=== PATIENT | female | born 1960 | race Caucasian/White ===

== ENCOUNTER 2019-10-18 13:55 | Emergency (ER) | payer MEDICARE, OTHER ==
--- NOTE | 2019-10-18 14:19 | EDM.PDOC ---
ED HPI GENERAL MEDICAL PROBLEM - General Chief Complaint: Respiratory Problem Stated Complaint: SOB Time Seen by Provider: 10/18/19 14:00 Source of Information: Reports: Patient, Old Records History Limitations: Reports: No Limitations - History of Present Illness INITIAL COMMENTS - FREE TEXT/NARRATIVE: Patient presents to ER with ongoing shortness of breath. She has been seeing Jeanine Hylton over the last few weeks for same. Has had a chest xray, 2 EKGS and an echocardiogram and have not been able to pinpoint why she is feeling this way. Labs have been normal. Initially thought she may have CHF and had a trial of Lasix but patient did not see a change. Saw psychiatry and they changed her meds around due to anxiety. Saw Jeanine last on and had repeat labs at that time. She notes on Saturday, started coughing more and now has been coughing up yellow sputum. She was found to have atrial fib and due to a CHADS score of 2, Eliquis was discussed. She is hesitant about blood thinners due to the troubles her mother had with Coumadin. Onset: Gradual Duration: Week(s): Location: Reports: Chest Quality: Reports: Ache Associated Symptoms: Reports: Cough, cough w sputum, Shortness of Breath, Weakness. 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 Treatments Chest Pain Score (Numeric/FACES): 2 - Related Data Allergies Allergy/AdvReac Type Severity Reaction Status Date / Time codeine Allergy Other Verified 10/18/19 14:16 mold Allergy Other Verified 10/18/19 14:16 Home Meds: Home Meds Albuterol Sulfate [Albuterol Sulfate Hfa] 2 puff INH Q4H PRN 10/18/19 [History] Aspirin 325 mg PO DAILY 10/18/19 [History] Cefuroxime Axetil [Ceftin] 250 mg PO BID #20 tablet 10/18/19 [Rx] Cholecalciferol (Vitamin D3) [Vitamin D3] 2,000 unit PO DAILY 10/18/19 [History] Fluticasone Furoate [Arnuity Ellipta] 1 puff IH DAILY PRN 10/18/19 [History] Gabapentin [Neurontin] 200 mg PO BEDTIME 10/18/19 [History] Losartan [Cozaar] 50 mg PO DAILY 10/18/19 [History] Lovastatin 20 mg PO DAILY 10/18/19 [History] Meloxicam 15 mg PO DAILY 10/18/19 [History] Metoprolol Tartrate 25 mg PO BID 10/18/19 [History] Mirtazapine [Remeron] 15 mg PO BEDTIME 10/18/19 [History] Multivitamin [Daily Multiple Vitamin] 1 tab PO DAILY 10/18/19 [History] Omeprazole 20 mg PO Q48H 10/18/19 [History] PARoxetine [Paxil] 20 mg PO DAILY 10/18/19 [History] Sodium Chloride [Saline Mist] 2 spray NS QID PRN 10/18/19 [History] hydroCHLOROthiazide [Hydrochlorothiazide] 12.5 mg PO DAILY 10/18/19 [History] traZODone HCl [Trazodone HCl] 100 mg PO BEDTIME 10/18/19 [History] Past Medical History HEENT History: Reports: Allergic Rhinitis Cardiovascular History: Reports: Afib, High Cholesterol, Hypertension Respiratory History: Reports: Other (See Below) Other Respiratory History: reactive airway disease Gastrointestinal History: Reports: GERD Genitourinary History: Reports: Chronic Renal Insuffiency Psychiatric History: Reports: Anxiety, Depression, PTSD Endocrine/Metabolic History: Reports: Other (See Below) Other Endocrine/Metabolic History: pre-diabetes Social & Family History - Tobacco Use Smoking Status *Q: Never Smoker ED ROS GENERAL - Review of Systems Review Of Systems: See Below Constitutional: Reports: Chills, Malaise, Weakness, Fatigue. Denies: Fever HEENT: Reports: Rhinitis. Denies: Ear Pain, Sinus Problem, Throat Pain Respiratory: Reports: Shortness of Breath, Cough, Sputum. Denies: Wheezing Cardiovascular: Denies: Chest Pain, Edema, Lightheadedness Endocrine: Reports: Fatigue GI/Abdominal: Denies: Abdominal Pain, Nausea, Vomiting : Reports: No Symptoms Musculoskeletal: Reports: Joint Pain Skin: Reports: No Symptoms Neurological: Reports: Weakness ED EXAM, GENERAL - Physical Exam Exam: See Below Exam Limited By: No Limitations General Appearance: Alert, WD/WN, No Apparent Distress Ears: Normal External Exam, Normal TMs Nose: Normal Inspection, Normal Mucosa, Other (excoriation noted) Throat/Mouth: Normal Inspection, Normal Oropharynx Head: Normocephalic Neck: Normal Inspection, Supple, Non-Tender Respiratory/Chest: No Respiratory Distress, Lungs Clear, Normal Breath Sounds Cardiovascular: Regular Rate, Rhythm GI/Abdominal: Normal Bowel Sounds, Soft, Non-Tender Extremities: Normal Inspection, Pedal Edema Neurological: Alert, Oriented Skin Exam: Warm, Dry Course - Vital Signs Last Recorded V/S: Last Vital Signs Temp 96.5 F 10/18/19 14:13 Pulse 93 10/18/19 14:13 Resp 32 H 10/18/19 14:13 BP 148/73 H 10/18/19 14:13 Pulse Ox 89 L 10/18/19 14:13 - Orders/Labs/Meds Labs: Laboratory Tests 10/18/19 10/18/19 10/18/19 Range/Units 14:25 14:25 14:25 WBC 7.5 (4.0-10.0) x10^3/uL RBC 3.87 L (4.00-5.50) x10^6/uL Hgb 11.9 L (12.0-16.0) g/dL Hct 35.4 (33.0-47.0) % MCV 91.5 (78.0-93.0) fL MCH 30.7 (26.0-32.0) pg MCHC 33.6 (32.0-36.0) g/dL RDW Coeff of Shamir 11.6 (10.0-15.0) % Plt Count 259 (130-400) x10^3/uL Neut % (Auto) 49.7 L (50.0-80.0) % Lymph % (Auto) 35.0 (25.0-50.0) % [place] % (Auto) 9.4 (2.0-11.0) % Eos % (Auto) 5.4 H (0.0-4.0) % Baso % (Auto) 0.5 (0.2-1.2) % D-Dimer, Quantitative 0.93 H (<=0.58) mg/LFEU Sodium 142 (136-145) mmol/L Potassium 4.3 (3.5-5.1) mmol/L Chloride 105 (98-107) mmol/L Carbon Dioxide 27 (21-32) mmol/L Anion Gap 14.3 (10-20) mmol/L BUN 23 H (7-18) mg/dL Creatinine 1.3 H (0.55-1.02) mg/dL Est Cr Clr Drug Dosing TNP Estimated GFR (MDRD) 42 Glucose 89 (74-106) mg/dL Calcium 8.0 L (8.5-10.1) mg/dL C-Reactive Protein 0.7 (<=0.9) mg/dL Meds: Medications Discontinued Medications Generic Name Dose Route Start Last Admin Trade Name Freq PRN Reason Stop Dose Admin Iopamidol 100 ml 10/18/19 15:14 10/18/19 15:22 Isovue-300 (61%) IVPUSH 10/18/19 15:15 100 ml ONETIME ONE Administration - Re-Assessments/Exams Free Text/Narrative Re-Assessment/Exam: 10/18/19 1500 Labs reviewed. WBC is stable. D-dimer is elevated. Will proceed with CTA of chest. 1600-REsults reviewed, consistent with bronchitis as has noted peribronchial thickening. Does have a area of sclerosis in the T2 vertebral body. Will need follow up of this, possible MRI, with primary care provider. Free Text/Narrative Re-Assessment/Exam: 10/18/19 16:[address] results with patient. Will need follow up of this with primary care provider Jeanine Hylton. Departure - Departure Time of Disposition: 16:15 Disposition: Home, Self-Care 01 Condition: Fair Clinical Impression: Acute bronchiolitis - Discharge Information *PRESCRIPTION DRUG MONITORING PROGRAM REVIEWED*: No *COPY OF PRESCRIPTION DRUG MONITORING REPORT IN PATIENT SARA: No Instructions: Acute Bronchitis, Adult, [id number] Forms: ED Department Discharge Additional Instructions: 1. Push fluids 2. Rest 3. Return with sputum sample if able 4. Start Ceftin 250 mg twice a day for the next 10 days 5. Follow up with Jeanine Hylton. Discuss CT and determine if further scan/MRI need of thoracic spine. Sepsis Event Note - Focused Exam Vital Signs: Vital Signs Temp Pulse Resp BP Pulse Ox 10/18/19 14:13 96.5 F 93 32 H 148/73 H 89 L Date Exam was Performed: 10/18/19 Time Exam was Performed: 16:04
[2019-10-18 14:43] LABS: CHLORIDE,CL 105 mmol/L (98-107); SODIUM,NA 142 mmol/L (136-145)
[2019-10-18 14:45] LABS: ANION GAP 14.3 mmol/L (10-20)
[2019-10-18] MEDS ORDERED: Iopamidol 612 MG/ML 100 ML Bottle IVPUSH ONE (15:14)
--- NOTE | 2019-10-18 15:57 | CT ---
[id number] CT/CTA Chest EXAM: CTA Chest CLINICAL DATA: ELEVATED D DIMER,SHORTNESS OF BREATH. COMPARISON: None. FINDINGS: LUNGS: Mild bilateral central and symmetric peribronchial thickening. Mosaic parenchymal attenuation pattern in the lungs extending into the apices is nonspecific. In the setting of possible bronchitis/bronchiolitis, sequela of small airways disease is most likely. Some of this opacity in the dependent lower lobes is possibly sequela of partial atelectasis. No evidence of pneumonia. No pneumothorax or effusion. HEART AND GREAT VESSELS: Negative for pulmonary embolus. Thoracic aorta is normal in caliber. No evidence of a dissection. Heart is normal in size and contour. No pericardial effusion. MEDIASTINUM AND LYMPHATICS: No mediastinal or hilar lymphadenopathy. UPPER ABDOMINAL ORGANS: Visualized portion of the liver demonstrates changes of diffuse steatosis. Otherwise unremarkable. BONES: 9 x 12 mm focal area of sclerosis well-defined margins in the T2 vertebral body right of midline (series 4 image 19 and series 6 image 59). A sclerotic lesion is possible. No other suspicious osseous findings on this examination. IMPRESSION: Negative for pulmonary embolus. Bilateral central and symmetric peribronchial thickening with a mild mosaic parenchymal attenuation pattern. Findings are nonspecific but can be seen with underlying changes of bronchitis/bronchiolitis. Focal 9 x 12 mm area of sclerosis with well-defined margins in the T2 vertebral body right of midline. Finding is nonspecific in etiology. However, in a patient of this age, metastatic disease is possible. Plasmacytoma/multiple myeloma is less likely, as this usually presents as a lytic lesion. Correlation with any prior imaging would be of benefit to assess for prior presence or stability. If no prior imaging is available additional evaluation is recommended, including MRI of the entire spine with and without contrast to evaluate for other lesions as well as a nuclear medicine bone scan. Won Vasquez MD 10/18/19 5209 Thank you for allowing us to participate in the care of your patient.
[2019-10-18] MEDS ORDERED: methylPREDNISolone Acetate 40 MG/ML SDV IM ONE (16:07)
[2019-10-18] MEDS ORDERED: cefTRIAXone 1 GM Vial IVPUSH SCH (16:15)
== END 2019-10-18 16:48 | disposition home or self-care (01) ==
LOC: VM.ED 13:55
DX: J21.9 Acute bronchiolitis, unspecified (principal); I12.9 Hypertensive chronic kidney disease with stage 1 through stage 4 chronic kidney disease, or unspecified chronic kidney disease; N18.9 Chronic kidney disease, unspecified; I48.91 Unspecified atrial fibrillation; E78.00 Pure hypercholesterolemia, unspecified; K21.9 Gastro-esophageal reflux disease without esophagitis; F41.9 Anxiety disorder, unspecified; F32.9 Major depressive disorder, single episode, unspecified; Z88.8 Allergy status to other drugs, medicaments and biological substances; Z91.048 Other nonmedicinal substance allergy status; Z79.82 Long term (current) use of aspirin; Z79.899 Other long term (current) drug therapy
CPT/HCPCS: 36415; 71275; 80048; 85025; 85379; 86140; 96372; 96374; 99284; 99285; J0696; J1030; Q9967

== ENCOUNTER 2019-12-26 16:46 | Emergency (ER) | payer MEDICARE, OTHER ==
[2019-12-26] MEDS ORDERED: Nitroglycerin 0.4 MG Tab.SL SL ONE (17:10)
--- NOTE | 2019-12-26 17:11 | EDM.PDOC ---
ED HPI GENERAL MEDICAL PROBLEM - General Chief Complaint: Respiratory Problem Stated Complaint: SOB Time Seen by Provider: 12/26/19 17:00 Source of Information: Reports: Patient History Limitations: Reports: No Limitations - History of Present Illness INITIAL COMMENTS - FREE TEXT/NARRATIVE: She comes into the emergency department with complaint of right sided chest discomfort, dry cough, and SOB with activity and cough. Patient states that woke up in the middle the night she states that the chest discomfort was a stabbing chest sharp sensation on the right side of her chest with a severe cough. She states that it has hurt more when she takes a deep breath or coughing. 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 However after she woke up this morning (8am) she states throughout the day the discomfort and SOB has continued. She denies taking any of her PRN inhalers or nebs as prescribed by her epidemiology investigator. She states that it is difficult to take a breath due to the discomfort at times. She denies it radiating to her neck or shoulder or getting worse. She also denies any nausea or vomiting, this of breath, blurred vision, dizziness, lightheadedness, or peripheral edema. States she has been relatively healthy prior to this other than her ongoing chronic respiratory issues. She does have a history of seasonal allergies and does follow-up regularly with her epidemiology investigator for chronic SOB. She did see her epidemiology investigator this past week and they changed her medications to help with her increased allergies this season. Patient did have a fever and chills within the last week but feels that has gotten better ans she has not checked her actual temp. 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 Onset: Sudden Quality: Reports: Stabbing Severity: Mild Improves with: Reports: Rest Worsens with: Reports: Movement Associated Symptoms: Reports: No Other Symptoms Chest Pain Score (Numeric/FACES): 6 - Related Data Allergies Allergy/AdvReac Type Severity Reaction Status Date / Time bupropion [From Wellbutrin] Allergy Hallucinati Verified 12/26/19 17:24 ons codeine Allergy Other Verified 12/26/19 17:24 mold Allergy Other Verified 12/26/19 17:24 Home Meds: Home Meds Albuterol Sulfate [Albuterol Sulfate Hfa] 2 puff INH Q4H PRN 10/18/19 [History] Aspirin 325 mg PO DAILY 10/18/19 [History] Cefuroxime Axetil [Ceftin] 250 mg PO BID #20 tablet 10/18/19 [Rx] Cholecalciferol (Vitamin D3) [Vitamin D3] 2,000 unit PO DAILY 10/18/19 [History] Fluticasone Furoate [Arnuity Ellipta] 1 puff IH DAILY PRN 10/18/19 [History] Gabapentin [Neurontin] 200 mg PO BEDTIME 10/18/19 [History] Losartan [Cozaar] 50 mg PO DAILY 10/18/19 [History] Lovastatin 20 mg PO DAILY 10/18/19 [History] Meloxicam 15 mg PO DAILY 10/18/19 [History] Metoprolol Tartrate 25 mg PO BID 10/18/19 [History] Mirtazapine [Remeron] 15 mg PO BEDTIME 10/18/19 [History] Multivitamin [Daily Multiple Vitamin] 1 tab PO DAILY 10/18/19 [History] Omeprazole 20 mg PO Q48H 10/18/19 [History] PARoxetine [Paxil] 30 mg PO DAILY 10/18/19 [History] Sodium Chloride [Saline Mist] 2 spray NS QID PRN 10/18/19 [History] hydroCHLOROthiazide [Hydrochlorothiazide] 12.5 mg PO DAILY 10/18/19 [History] traZODone HCl [Trazodone HCl] 100 mg PO BEDTIME 10/18/19 [History] Azelastine HCl 1 spray .ROUTE Q12HR 12/26/19 [History] Budesonide [Pulmicort] 0.5 mg IH BID 12/26/19 [History] LORazepam [Ativan] 0.5 mg PO ASDIRECTED PRN 12/26/19 [History] Levocetirizine Dihydrochloride [Xyzal] 5 mg PO DAILY 12/26/19 [History] Pseudoephedrine HCl [Sudafed] 30 mg PO Q4HR PRN 12/26/19 [History] Sodium Chloride 5% [Tania 128 5% Ophth Soln] 1 drop EYEBOTH BID 12/26/19 [History ] Umeclidinium Brm/Vilanterol Tr [Anoro Ellipta 62.5-25 MCG] 62.5 mcg IH DAILY 01/10 [History] Vitamin E 1,000 units PO DAILY 12/26/19 [History] diphenhydrAMINE [Benadryl] 25 mg PO BEDTIME PRN 12/26/19 [History] guaiFENesin [Mucinex] 600 mg PO BID 12/26/19 [History] Past Medical History HEENT History: Reports: Allergic Rhinitis Cardiovascular History: Reports: Afib, High Cholesterol, Hypertension Respiratory History: Reports: Other (See Below) Other Respiratory History: reactive airway disease Gastrointestinal History: Reports: GERD Other Gastrointestinal History: Umbilical hernia Genitourinary History: Reports: Chronic Renal Insuffiency Musculoskeletal History: Reports: Neck Pain, Chronic Psychiatric History: Reports: Anxiety, Depression, PTSD Endocrine/Metabolic History: Reports: Other (See Below) Other Endocrine/Metabolic History: pre-diabetes - Past Surgical History Female Surgical History: Reports: Section Musculoskeletal Surgical History: Reports: Arthroscopic Knee ED ROS GENERAL - Review of Systems Review Of Systems: See Below Constitutional: Reports: Night Sweats, Decreased Appetite Respiratory: Reports: Pleuritic Chest Pain, Cough, Sputum Endocrine: Reports: Fatigue GI/Abdominal: Reports: No Symptoms : Reports: No Symptoms Musculoskeletal: Reports: No Symptoms Skin: Reports: No Symptoms Neurological: Reports: No Symptoms Psychiatric: Reports: No Symptoms Hematologic/Lymphatic: Reports: No Symptoms Immunologic: Reports: No Symptoms ED EXAM, GENERAL - Physical Exam Exam: See Below Exam Limited By: No Limitations General Appearance: Alert, WD/WN, No Apparent Distress Nose: Clear Rhinorrhea Throat/Mouth: Normal Inspection, Normal Lips, Normal Voice Head: Atraumatic, Normocephalic Neck: Normal Inspection, Supple, Non-Tender, Full Range of Motion Respiratory/Chest: No Respiratory Distress, No Accessory Muscle Use, Decreased Breath Sounds Cardiovascular: Normal Peripheral Pulses, Regular Rate, Rhythm, No Edema GI/Abdominal: Normal Bowel Sounds, Soft, Non-Tender, No Distention Back Exam: Normal Inspection, Full Range of Motion Extremities: Normal Inspection, Normal Range of Motion, Non-Tender, No Pedal Edema, Normal Capillary Refill Neurological: Alert, Oriented, Normal Cognition, Normal Gait Psychiatric: Normal Affect, Normal Mood Skin Exam: Warm, Dry, Intact, Normal Color Course - Vital Signs Last Recorded V/S: Last Vital Signs Temp 36.1 C 12/26/19 17:04 Pulse 97 12/26/19 18:02 Resp 19 12/26/19 18:02 BP 97/76 12/26/19 18:02 Pulse Ox 94 L 12/26/19 18:02 - Orders/Labs/Meds Orders: Active Orders 24 hr Category Date Time Status EKG Documentation Completion [RC] STAT Care 12/26/19 17:02 Active RT Aerosol Therapy [RC] ASDIRECTED Care 12/26/19 18:16 Active Labs: Laboratory Tests 12/26/19 12/26/19 Range/Units 17:13 17:13 WBC 8.1 (4.0-10.0) x10^3/uL RBC 4.40 (4.00-5.50) x10^6/uL Hgb 13.6 D (12.0-16.0) g/dL Hct 40.7 (33.0-47.0) % MCV 92.5 (78.0-93.0) fL MCH 30.9 (26.0-32.0) pg MCHC 33.4 (32.0-36.0) g/dL RDW Coeff of Shamir 12.2 (10.0-15.0) % Plt Count 271 (130-400) x10^3/uL Neut % (Auto) 46.9 L (50.0-80.0) % Lymph % (Auto) 35.0 (25.0-50.0) % [place] % (Auto) 12.9 H (2.0-11.0) % Eos % (Auto) 4.2 H (0.0-4.0) % Baso % (Auto) 1.0 (0.2-1.2) % Sodium 142 (136-145) mmol/L Potassium 3.8 (3.5-5.1) mmol/L Chloride 105 (98-107) mmol/L Carbon Dioxide 28 (21-32) mmol/L Anion Gap 12.8 (10-20) mmol/L BUN 17 (7-18) mg/dL Creatinine 1.0 (0.55-1.02) mg/dL Est Cr Clr Drug Dosing 53.16 mL/min Estimated GFR (MDRD) 56 Glucose 122 H (74-106) mg/dL Calcium 9.1 (8.5-10.1) mg/dL Corrected Calcium 9.66 (8.5-10.1) mg/dL Total Bilirubin 0.3 (0.2-1.0) mg/dL AST 30 (15-37) U/L ALT 39 (14-59) U/L Alkaline Phosphatase 61 (46-116) U/L Creatine Kinase 144 (26-192) U/L Troponin I < 0.017 (<=0.056) ng/mL NT-Pro-B Natriuret Pep 97 (<=125) pg/mL Total Protein 7.7 (6.4-8.2) g/dL Albumin 3.3 L (3.4-5.0) g/dL Globulin 4.4 Albumin/Globulin Ratio 0.75 Meds: Medications Discontinued Medications Generic Name Dose Route Start Last Admin Trade Name Freq PRN Reason Stop Dose Admin Albuterol/Ipratropium 3 ml 12/26/19 18:16 Duoneb 3.0-0.5 Mg/3 Ml NEB 12/26/19 18:17 ONETIME ONE Nitroglycerin 0.4 mg 12/26/19 17:10 12/26/19 17:18 Nitrostat SL 12/26/19 17:11 0.4 mg ONETIME ONE Administration Departure - Departure Time of Disposition: 19:00 Disposition: Home, Self-Care 01 Condition: Good Clinical Impression: Respiratory disorder, Pleuritic chest pain - Discharge Information *PRESCRIPTION DRUG MONITORING PROGRAM REVIEWED*: Not Applicable *COPY OF PRESCRIPTION DRUG MONITORING REPORT IN PATIENT SARA: Not Applicable Instructions: Costochondritis, [id number], Albuterol inhalation solution Referrals: Jeanine Hylton PA-C [Primary Care Provider] - Forms: ED Department Discharge Additional Instructions: 1. rest 2. increase your water intake 3. Continue all at home medications 4. Activity and diet as tolerated 5. Can take over the counter Tylenol or ibuprophen for any pain or discomfort 6. Albuterol inhalation you received from her epidemiology investigator every 4 hours as needed for shortness of breath 7. Follow up with PCP if symptoms continue, return, or progress 8. Call with any questions or concerns Sepsis Event Note - Focused Exam Vital Signs: Vital Signs Temp Pulse Resp BP BP Pulse Ox Pulse Ox 12/26/19 18:02 97 19 97/76 94 L 12/26/19 17:50 100 89 L 94 L 12/26/19 17:26 96 20 101/66 92 L 12/26/19 17:18 120/84 12/26/19 17:04 36.1 C 102 H 22 H 131/69 92 L Date Exam was Performed: 12/26/19 Time Exam was Performed: 18:26 - My Orders Last 24 Hours: My Active Orders 12/26/19 17:02 EKG Documentation Completion [RC] STAT 12/26/19 18:16 RT Aerosol Therapy [RC] ASDIRECTED - Assessment/Plan Last 24 Hours: My Active Orders 12/26/19 17:02 EKG Documentation Completion [RC] STAT 12/26/19 18:16 RT Aerosol Therapy [RC] ASDIRECTED Assessment:: 1. SOB 2. Pleuritic chest pain Plan: 1. Labs completed in the ER. Results reviewed with the patient 2. IV initiated in the emergency department 3. IV fluids provided 4. Chest xray completed in ER. Results reviewed with the patient 5. Nitro SL was given to the patient. no relief noted 6. EKG was completed in ER. Results reviewed with the patient 7. Duoneb completed in the ER. 8. Patient just received albuterol nebs when she saw the epidemiology investigator this week but has not used them yet. Patient was instructed to use them as needed for any SOB if it arises. Patient is encouraged to use nebs every 4 hours as needed. She was also instructed to turn up her dial by 1 turn on her steroid inhaler but has not completed that activity. Patient was encouraged to follow the recommended instructions per her epidemiology investigator since symptoms continue to rise and flare. 9. Patient and nursing staff was updated regarding the plan of care 10. Education provided the patient regarding activity, diet, rest, over-the- counter medication modalities, and follow-up care was provided 11. Patient and family are agreeable to the above plan of care 12. All questions and concerns were addressed with the patient and family prior to discharge
[2019-12-26 17:53] LABS: CHLORIDE,CL 105 mmol/L (98-107); SODIUM,NA 142 mmol/L (136-145)
[2019-12-26 17:54] LABS: ANION GAP 12.8 mmol/L (10-20)
--- NOTE | 2019-12-26 18:10 | CR ---
[id number] RAD/RAD Chest PA or AP 1V EXAM: RAD Chest PA or AP 1V INDICATION: CHEST PAIN. COMPARISON: CT October 18, 2019 DISCUSSION: Borderline cardiomegaly. No infiltrate, effusion, pneumothorax, or edema. IMPRESSION: No acute findings. Won Vasquez MD 12/26/19 0119 Thank you for allowing us to participate in the care of your patient.
[2019-12-26] MEDS ORDERED: Albuterol/Ipratropium 3.0-0.5 MG/3 ML Neb Soln NEB ONE (18:16)
== END 2019-12-26 19:19 | disposition home or self-care (01) ==
LOC: VM.ED 16:46
DX: R07.81 Pleurodynia (principal); R06.02 Shortness of breath; I48.91 Unspecified atrial fibrillation; I12.9 Hypertensive chronic kidney disease with stage 1 through stage 4 chronic kidney disease, or unspecified chronic kidney disease; N18.9 Chronic kidney disease, unspecified; K21.9 Gastro-esophageal reflux disease without esophagitis
CPT/HCPCS: 71045; 80053; 82550; 83880; 84484; 85025; 93005; 94640; 99285; A9270; 99284-GF; J7620-GY

== ENCOUNTER 2020-04-12 13:05 | Emergency (ER) | payer MEDICARE, OTHER ==
--- NOTE | 2020-04-12 15:00 | EDM.PDOC ---
ED HPI GENERAL MEDICAL PROBLEM - General Chief Complaint: Lower Extremity Injury/Pain Stated Complaint: FALL Time Seen by Provider: 04/12/20 13:10 Source of Information: Reports: Patient History Limitations: Reports: No Limitations - History of Present Illness INITIAL COMMENTS - FREE TEXT/NARRATIVE: Pt. presents to ER with complaints of fall off of a chair. She states that she was attempting to sit on a chair that had rollers and missing, landing on her backside on the floor. She states that she fell straight down onto her backside. She denies striking her head on the floor, but the chair moved and hit her lightly on the head. Denies any LOC. No neck pain. Complains of pain to pelvis and hips, primarily L>R. Pt. states that she has difficulty with ambulation and states that she normally uses a walker to get around but hasn't the past several days. Pt. was transported to ER via EMS. Pt. was able to stand and pivot to get onto the cot. Pt. denies any chest pain, shortness of breath, lightheadedness, palpitations, weakness or other symptoms prior to the fall. States that the reason for the fall was purely missing the chair. Onset: Today Onset Date: 04/12/20 Location: Reports: Pelvis, Lower Extremity, Left, Lower Extremity, Right Left Hip Pain Score (Numeric/FACES): 4 - Related Data Allergies Allergy/AdvReac Type Severity Reaction Status Date / Time bupropion [From Wellbutrin] Allergy Hallucinati Verified 04/12/20 13:20 ons codeine Allergy Other Verified 04/12/20 13:20 mold Allergy Other Verified 04/12/20 13:20 Home Meds: Home Meds Albuterol Sulfate [Albuterol Sulfate Hfa] 2 puff INH Q4H PRN 10/18/19 [History] Aspirin 325 mg PO DAILY 10/18/19 [History] Cholecalciferol (Vitamin D3) [Vitamin D3] 2,000 unit PO DAILY 10/18/19 [History] Gabapentin [Neurontin] 200 mg PO BEDTIME 10/18/19 [History] Losartan [Cozaar] 50 mg PO DAILY 10/18/19 [History] Lovastatin 20 mg PO DAILY 10/18/19 [History] Meloxicam 15 mg PO DAILY 10/18/19 [History] Metoprolol Tartrate 25 mg PO BID 10/18/19 [History] Multivitamin [Daily Multiple Vitamin] 1 tab PO DAILY 10/18/19 [History] Omeprazole 20 mg PO DAILY 10/18/19 [History] PARoxetine [Paxil] 30 mg PO DAILY 10/18/19 [History] Sodium Chloride [Saline Mist] 2 spray NS QID PRN 10/18/19 [History] traZODone HCl [Trazodone HCl] 100 mg PO BEDTIME 10/18/19 [History] Pseudoephedrine HCl [Sudafed] 30 mg PO Q4HR PRN 12/26/19 [History] Sodium Chloride 5% [Tania 128 5% Ophth Soln] 1 drop EYEBOTH BID 12/26/19 [History] Umeclidinium Brm/Vilanterol Tr [Anoro Ellipta 62.5-25 MCG] 1 puff PO DAILY 12/26/19 [History] Vitamin E 1,000 units PO DAILY 12/26/19 [History] diphenhydrAMINE [Benadryl] 25 - 50 mg PO BEDTIME PRN 12/26/19 [History] guaiFENesin [Mucinex] 600 mg PO BID 12/26/19 [History] Albuterol [Proventil Neb Soln] 2.5 mg INH Q4HR PRN 04/12/20 [History] Ascorbic Acid [Vitamin C] 1,000 mg PO DAILY 04/12/20 [History] Budesonide [Pulmicort Flexhaler] 2 inhalation INH BID 04/12/20 [History] Furosemide 40 mg PO DAILY 04/12/20 [History] Montelukast [Singulair] 10 mg PO BEDTIME 04/12/20 [History] [place]-3 Acid Ethyl Esters [Lovaza] 1 gm PO BID 04/12/20 [History] Rivaroxaban [Xarelto] 20 mg PO DAILY 04/12/20 [History] Past Medical History HEENT History: Reports: Allergic Rhinitis Cardiovascular History: Reports: Afib, High Cholesterol, Hypertension Respiratory History: Reports: Other (See Below) Other Respiratory History: reactive airway disease Gastrointestinal History: Reports: GERD Other Gastrointestinal History: Umbilical hernia Genitourinary History: Reports: Chronic Renal Insuffiency Musculoskeletal History: Reports: Neck Pain, Chronic Psychiatric History: Reports: Anxiety, Depression, PTSD Endocrine/Metabolic History: Reports: Other (See Below) Other Endocrine/Metabolic History: pre-diabetes - Past Surgical History Female Surgical History: Reports: Section Musculoskeletal Surgical History: Reports: Arthroscopic Knee Social & Family History - Tobacco Use Smoking Status *Q: Never Smoker - Recreational Drug Use Recreational Drug Use: No Review of Systems - Review of Systems Review Of Systems: See Below Constitutional: Reports: No Symptoms Eyes: Reports: No Symptoms Ears: Reports: No Symptoms Nose: Reports: No Symptoms Mouth/Throat: Reports: No Symptoms Respiratory: Reports: No Symptoms Cardiovascular: Reports: No Symptoms GI/Abdominal: Reports: No Symptoms Genitourinary: Reports: No Symptoms Musculoskeletal: Reports: Joint Pain, Muscle Pain Skin: Reports: No Symptoms Neurological: Reports: No Symptoms Psychiatric: Reports: No Symptoms ED EXAM, GENERAL - Physical Exam Exam: See Below Exam Limited By: No Limitations General Appearance: Alert, WD/WN, No Apparent Distress Eye Exam: Bilateral Eye: EOMI, Normal Fundi, Normal Inspection, PERRL Nose: Normal Inspection, No Blood Head: Atraumatic, Normocephalic Neck: Normal Inspection, Supple, Non-Tender, Full Range of Motion Respiratory/Chest: No Respiratory Distress, Lungs Clear, Normal Breath Sounds, No Accessory Muscle Use, Chest Non-Tender Cardiovascular: Normal Peripheral Pulses, Regular Rate, Rhythm, No Edema, No G allop, No JVD, No Murmur, No Rub Peripheral Pulses: 4+: Radial (R) GI/Abdominal: Soft, Non-Tender, No Mass, Pelvis Stable (Female) Exam: Deferred Rectal (Female) Exam: Deferred Back Exam: Normal Inspection, Full Range of Motion Extremities: Limited Range of Motion, Other (bilateral hip pain. No crepitus with manipulation of the extremities. CMS intact. Pt. reports pain with flexion of the hips.) Neurological: Alert, Oriented, CN II-XII Intact, Normal Gait, No Motor/Sensory Deficits Psychiatric: Normal Affect, Normal Mood Skin Exam: Warm, Dry, Intact, Normal Color, No Rash Course - Vital Signs Last Recorded V/S: Last Vital Signs Temp 37.3 C 04/12/20 13:10 Pulse 67 04/12/20 13:10 Resp 20 04/12/20 13:10 BP 138/75 04/12/20 13:10 Pulse Ox Departure - Departure Time of Disposition: 15:00 Disposition: Home, Self-Care 01 Clinical Impression: Contusion - Discharge Information Instructions: Contusion, [id number] Referrals: Laverne Hylton, [Primary Care Provider] - Forms: ED Department Discharge Additional Instructions: No fractures of your pelvis or hips noted. Tylenol as needed for discomfort. Use walker as much as possible. Recheck in clinic in 7-10 days if still having discomfort. Sepsis Event Note (ED) - Evaluation Sepsis Screening Result: No Definite Risk
--- NOTE | 2020-04-12 15:31 | CR ---
[id number] RAD/RAD Pelvis 1V W 2V Left Hip EXAM: 7 VIEWS PELVIS AND LEFT HIP. INDICATION: PAIN, FALL. COMPARISON: None. DISCUSSION: Evaluation is somewhat limited by technique. No definite acute fracture or dislocation. Mild to moderate degenerative changes of the femoral acetabular joints bilaterally. IMPRESSION: 1. No definite acute fracture or dislocation. Dixon Adkins DO 04/12/20 [id number] Thank you for allowing us to participate in the care of your patient.
== END 2020-04-12 16:00 | disposition home or self-care (01) ==
LOC: VM.ED 13:05
DX: S70.02XA Contusion of left hip, initial encounter (principal); S70.01XA Contusion of right hip, initial encounter; I12.9 Hypertensive chronic kidney disease with stage 1 through stage 4 chronic kidney disease, or unspecified chronic kidney disease; N18.9 Chronic kidney disease, unspecified; E78.00 Pure hypercholesterolemia, unspecified; I48.91 Unspecified atrial fibrillation; J45.909 Unspecified asthma, uncomplicated; K21.9 Gastro-esophageal reflux disease without esophagitis; F41.9 Anxiety disorder, unspecified; F32.9 Major depressive disorder, single episode, unspecified; Z88.8 Allergy status to other drugs, medicaments and biological substances; Z88.5 Allergy status to narcotic agent; Z91.048 Other nonmedicinal substance allergy status; Z79.82 Long term (current) use of aspirin; Z79.899 Other long term (current) drug therapy; Z79.01 Long term (current) use of anticoagulants; Z98.890 Other specified postprocedural states; W07.XXXA Fall from chair, initial encounter
CPT/HCPCS: 99283-GF; 99284-25

== ENCOUNTER 2020-08-30 14:50 | Emergency (ER) | payer MEDICARE, OTHER ==
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
[2020-08-30 16:13] LABS: PTT,PARTIAL THROMBOPLSTIN TIME 29.4 SEC (25.6-32.8)
[2020-08-30 16:15] LABS: ANION GAP 8.7 mmol/L (10-20); CHLORIDE,CL 103 mmol/L (98-107); SODIUM,NA 138 mmol/L (136-145)
[2020-08-30] MEDS ORDERED: Take Home: Cyclobenzaprine 10 MG Tab, 4 Tab Pack PO ONE (16:34)
--- NOTE | 2020-08-30 16:53 | CR ---
[id number] RAD/RAD Chest PA And Lateral EXAM: RAD Chest PA And Lateral INDICATION: CHEST WALL PAIN. COMPARISON: February 09, 2020. DISCUSSION: Cardiomediastinal silhouette is normal in size and contour. Lungs are clear. No pleural effusion or pneumothorax. No visible fracture. IMPRESSION: Negative examination of the chest. Won Vasquez MD 08/30/20 0746 Thank you for allowing us to participate in the care of your patient.
== END 2020-08-30 16:45 | disposition home or self-care (01) ==
LOC: VM.ED 14:50
DX: R07.89 Other chest pain (principal); I48.91 Unspecified atrial fibrillation; E78.00 Pure hypercholesterolemia, unspecified; K21.9 Gastro-esophageal reflux disease without esophagitis; I12.9 Hypertensive chronic kidney disease with stage 1 through stage 4 chronic kidney disease, or unspecified chronic kidney disease; N18.9 Chronic kidney disease, unspecified; F41.9 Anxiety disorder, unspecified; F32.9 Major depressive disorder, single episode, unspecified; Z88.8 Allergy status to other drugs, medicaments and biological substances; Z88.5 Allergy status to narcotic agent; Z91.048 Other nonmedicinal substance allergy status; Z79.899 Other long term (current) drug therapy; Z79.01 Long term (current) use of anticoagulants; Z20.828 Contact with and (suspected) exposure to other viral communicable diseases
CPT/HCPCS: 36415; 71046; 80053; 83735; 84484; 85025; 85379; 85610; 85730; 86140; 93005; 93010; 99284; 99285-25; A9270-GY; U0002

== ENCOUNTER 2020-12-18 12:19 | Emergency (ER) | payer MEDICARE, OTHER ==
[2020-12-18] MEDS ORDERED: GI Cocktail Oral Solution 30 ML PO ONE (13:28)
[2020-12-18] MEDS ORDERED: Orphenadrine 60 MG/2 ML Inj IM STA (13:28)
[2020-12-18] MEDS ORDERED: Sodium Chloride 0.9% 10 ML Syringe FLUSH PRN (13:28)
[2020-12-18] MEDS ORDERED: Ketorolac 30 MG/ML SDV IVPUSH ONE (13:28)
[2020-12-18] MEDS ORDERED: Orphenadrine 60 MG/2 ML Inj IV ONE (13:33)
[2020-12-18 13:49] LABS: CHLORIDE,CL 103 mmol/L (98-107); SODIUM,NA 137 mmol/L (136-145)
[2020-12-18 13:50] LABS: ANION GAP 12.2 mmol/L (5-15)
--- NOTE | 2020-12-18 14:03 | CR ---
[id number] RAD/RAD Chest PA And Lateral EXAM: FRONTAL AND LATERAL CHEST INDICATION: Chest pain. COMPARISON: August 30, 2020. DISCUSSION: On chronic basilar scarring with no definite acute infiltrates. Borderline heart size without evidence of edema. Partially imaged cervical spine fusion hardware. IMPRESSION: 1. No acute findings. Andi Brown MD 12/18/20 0875 Thank you for allowing us to participate in the care of your patient.
[2020-12-18] MEDS ORDERED: Take Home: Acetaminophen/HYDROcodone 325-5 MG, 5 Tab Pack PO ONE (14:33)
[2020-12-18] MEDS ORDERED: predniSONE 20 MG Tab PO ONE (14:33)
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
[2020-12-18] MEDS ORDERED: Take Home: Cyclobenzaprine 10 MG Tab, 4 Tab Pack PO ONE (14:41)
--- NOTE | 2020-12-18 15:19 | PCM.EKG ---
#1 Interpretation EKG Date: 12/18/20 Time: 12:33 Rhythm: NSR Rate (Beats/Min): 70 [place]: Normal P-Wave: Present QRS: Normal ST-T: Normal QT: Normal Comparison: NA - No Prior EKG
== END 2020-12-18 14:45 | disposition home or self-care (01) ==
LOC: VM.ED 12:19
DX: M54.12 Radiculopathy, cervical region (principal); R07.89 Other chest pain; R74.8 Abnormal levels of other serum enzymes; R74.01 Elevation of levels of liver transaminase levels; I12.9 Hypertensive chronic kidney disease with stage 1 through stage 4 chronic kidney disease, or unspecified chronic kidney disease; N18.9 Chronic kidney disease, unspecified; I48.91 Unspecified atrial fibrillation; E78.00 Pure hypercholesterolemia, unspecified; J45.909 Unspecified asthma, uncomplicated; K21.9 Gastro-esophageal reflux disease without esophagitis; Z88.8 Allergy status to other drugs, medicaments and biological substances; Z88.5 Allergy status to narcotic agent; Z91.048 Other nonmedicinal substance allergy status; Z79.899 Other long term (current) drug therapy; Z79.01 Long term (current) use of anticoagulants
CPT/HCPCS: 36415; 71046; 80053; 84484; 85025; 93005; 93010; 96374; 96375; 99284; 99284-25; A9270-GY; J1885; J2360; J7512